=== PATIENT | female | born 1970 | race Caucasian/White ===

== ENCOUNTER 2021-02-18 13:02 | Emergency (ER) | payer BC, OTHER ==
[2021-02-18] MEDS ORDERED: CEPHALEXIN500 M1 PO (15:29)
[2021-02-18] MEDS ORDERED: BACTRIM DS TAB1 EACH PO (15:29)
[2021-02-18] MEDS ORDERED: NAPROSYN500 MG PO (15:29)
== END 2021-02-18 16:08 | disposition home or self-care (01) ==
LOC: ER1 13:02
DX: L02.411 Cutaneous abscess of right axilla (principal); L02.213 Cutaneous abscess of chest wall; Z88.5 Allergy status to narcotic agent
CPT/HCPCS: 10060; 87070; 87077; 87186; 87205; 96374; 99283

== ENCOUNTER 2021-02-20 21:12 | Emergency (ER) | payer BC, OTHER ==
[~2021-02-20 21:12] MED LIST: BACTRIM DS TAB1 EACH PO; CEPHALEXIN500 M1 PO; NAPROSYN500 MG PO
[2021-02-20] MEDS ORDERED: BACTROBAN OINT22 GM EXT (22:36)
== END 2021-02-20 22:45 | disposition home or self-care (01) ==
LOC: ER1 21:12
DX: Z48.817 Encounter for surgical aftercare following surgery on the skin and subcutaneous tissue (principal)
CPT/HCPCS: 99282